=== PATIENT | male | born 1975 | race African-American/Black ===

== ENCOUNTER 2024-12-19 12:00 | Emergency (ER) | payer MEDICAID, OTHER ==
[~2024-12-19] VITALS: Ht 177.8 cm; Wt 87.0 kg
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
--- NOTE | 2024-12-19 13:38 | DVH ---
CLINICAL INDICATION: trauma TECHNIQUE: 3 radiographic views of the left foot were obtained. Comparison: None FINDINGS/IMPRESSION: 2 internal fixation cancellous screws in the left calcaneus. Soft tissue swelling over the dorsum of the metatarsals
[2024-12-19] MEDS ORDERED: IBUP100S11 PO (15:55)
[2024-12-19 16:10] VITALS: BP 142/90; PULSE 76; RESP 18; TEMP 99; O2SAT 97
== END 2024-12-19 16:10 | disposition home or self-care (01) ==
LOC: ER 12:00
DX: S96.912A Strain of unspecified muscle and tendon at ankle and foot level, left foot, initial encounter (principal); I10 Essential (primary) hypertension; W23.0XXA Caught, crushed, jammed, or pinched between moving objects, initial encounter; Y93.89 Activity, other specified; Y92.89 Other specified places as the place of occurrence of the external cause; Y99.8 Other external cause status
CPT/HCPCS: 73630